=== PATIENT | male | born 1975 | race Caucasian/White ===

== ENCOUNTER 2017-06-07 18:05 | Emergency (ER) | payer OTHER ==
[2017-06-07 18:21] VITALS: RESP 18
--- NOTE | 2017-06-07 19:10 | ED ---
General Adult HPI - General Chief complaint: Recheck/Abnormal Lab/Rx Stated complaint: Cough Time Seen by Provider: 06/07/17 18:33 Source: patient Mode of arrival: ambulatory Limitations: no limitations - History of Present Illness Initial comments: 42-year-old male patient presents to emergency department today for evaluation after being sent in by [facility]. Patient has a past medical history significant for chronic alcohol abuse, liver failure , and cirrhosis of the liver. Patient states that he is treated for his liver condition by his internal medicine doctor and specialists in [place]. States that today he was having some chest pain whenever he coughed or sneezed. States that the chest pain last around 5 seconds but resolved quickly. He denies any current chest pain. He states that otherwise he is feeling normal. He states that the physician at [facility] was concerned because he had some scleral icterus, jaundice, and ascites on physical exam. Patient states that these symptoms and findings are chronic for him. He states that he has had jaundice and scleral icterus since his diagnosis of liver failure in Jul 2016. He states that he has paracentesis for his ascites every three months, his last tap was one week ago, he states his abdomen is much smaller than usual. He states he is feeling well overall other than that small episodes of chest pain. He states that he needs medical clearance to return to [facility]. Patient denies any recent fever, chills, shortness breath, sputum production, abdominal pain, nausea, vomiting, diarrhea, constipation, back pain, numbness, tingling, dizziness, weakness, hematuria, dysuria, urinary urgency, urinary frequency, headache, visual changes, or any other complaints. - Related Data Home Medications Medication Instructions Recorded Confirmed Ciprofloxacin HCl [Cipro] 500 mg PO DAILY 06/07/17 06/07/17 Lactulose 20 gm PO BID 06/07/17 06/07/17 Multivitamins, Thera [Multivitamin 1 tab PO DAILY 06/07/17 06/07/17 (formulary)] Pantoprazole Sodium [Protonix] 40 mg PO DAILY 06/07/17 06/07/17 Pyridoxine HCl (Vitamin B6) 100 mg PO DAILY 06/07/17 06/07/17 [Vitamin B-6] Spironolactone 50 mg PO BID 09/21/17 09/21/17 Thiamine [Vitamin B-1] 200 mg PO TID 06/07/17 06/07/17 traZODone HCL [Desyrel] 50 - 150 mg PO HS 06/07/17 06/07/17 Previous Rx's Medication Instructions Recorded Lactulose [Cephulac] 20 gm PO TID #1350 ml 06/07/17 Allergies Allergy/AdvReac Type Severity Reaction Status Date / Time No Known Allergies Allergy Verified 06/07/17 18:48 Review of Systems ROS Statement: Those systems with pertinent positive or pertinent negative responses have been documented in the HPI. ROS Other: All systems not noted in ROS Statement are negative. Past Medical History Additional Past Medical History / Comment(s): Liver failure, GI bleed History of Any Multi-Drug Resistant Organisms: None Reported Additional Past Surgical History / Comment(s): colonoscopy Past Psychological History: Anxiety Smoking Status: Current every day smoker Past Alcohol Use History: Abuse Past Drug Use History: Marijuana General Exam Limitations: no limitations General appearance: alert, in no apparent distress, other (Well-developed, well- nourished male in no acute distress. Vital signs upon admission were temperature 97.0, pulse 95, respirations 18, blood pressure 103/55, pulse ox 100 % on room air.) Eye exam: Present: normal appearance, PERRL, EOMI, scleral icterus. Absent: conjunctival injection, nystagmus, periorbital swelling ENT exam: Present: normal exam, normal oropharynx, mucous membranes moist Respiratory exam: Present: normal lung sounds bilaterally, chest wall tenderness (For the central chest). Absent: respiratory distress, wheezes, rales, rhonchi, stridor Cardiovascular Exam: Present: regular rate, normal rhythm, normal heart sounds. Absent: systolic murmur, diastolic murmur, rubs, gallop, clicks GI/Abdominal exam: Present: distended, normal bowel sounds, hernia (Umbilical, soft, no surrounding erythema, nontender.). Absent: soft, tenderness, guarding , rebound, rigid Extremities exam: Present: normal inspection, full ROM, normal capillary refill. Absent: tenderness, pedal edema, joint swelling, calf tenderness Back exam: Present: normal inspection. Absent: tenderness Neurological exam: Present: alert, oriented X3, CN II-XII intact Psychiatric exam: Present: normal affect, normal mood Skin exam: Present: warm, dry, intact, normal color (Jaundice). Absent: rash Course Vital Signs 06/07/17 06/07/17 06/07/17 18:11 20:25 20:57 Temperature 97.0 F L 98.0 F Pulse Rate 95 90 Respiratory 18 18 Rate Blood Pressure 103/55 93/53 O2 Sat by Pulse 100 95 Oximetry EKG Findings - EKG Comments: EKG Findings:: EKG obtained at 1931 shows normal sinus rhythm with a ventricular rate of 85, KS interval 142, QRS duration 100, QT 386, QTc 459. No evidence of ST elevation or depression. Medical Decision Making - Medical Decision Making 42-year-old male patient presented from [facility] for evaluation of chest pain. Patient reported that this chest pain occurred for approximately 5 seconds after a cough or a sneeze. Patient states this is not new for him however when he reported to the nurses they made him see the physician at [facility]. He states that with minimal exam, no vital signs, and without listening to him the physician sent him here for evaluation. Chest x-ray and EKG were negative for any acute process. Physical exam did reveal some jaundice and scleral icterus which patient states is chronic for him since being diagnosed with liver failure and cirrhosis in July 2016. Patient did also have some abdominal ascites noted however he states that his abdomen is not as large as usual, he did have paracentesis one week ago, he states he gets this every 3 months. Patient reports that otherwise he is feeling normal. He states that he doesn't really want to be here however it was required for him to be able to return to [facility]. He states that they are not giving him his lactulose as he usually takes it. Patient will be given a prescription to take lactulose 20 g 3 times daily. He will be also placed on a low-sodium diet which he states he usually takes to control swelling in his legs. He is instructed to follow-up with his primary care physician for recheck in 2 days. He is instructed to return here immediately for any new, worsening, or concerning symptoms. Patient will be sent back to [facility]. - Radiology Data Radiology results: report reviewed, image reviewed Two-view x-ray of the chest shows heart and mediastinum are normal. Lungs are clear consolidation. There are no hilar masses. There are chest leads. Bony thorax is intact. Impression by Dr. Durán shows normal chest. Disposition Clinical Impression: Cough, Chest wall pain Disposition: HOME SELF-CARE Condition: Good Instructions: Chest Wall Pain (ED) Additional Instructions: Take lactulose as prescribed. Follow up with your primary care physician for recheck in 1-2 days. Return here immediately for any new, worsening, or concerning symptoms. Prescriptions: Lactulose [Cephulac] 20 gm PO TID #1350 ml Referrals: None,Stated [Primary Care Provider] - 1-2 days Time of Disposition: 20:53
--- NOTE | 2017-06-07 20:00 | XR ---
EXAMINATION TYPE: XR chest 2V DATE OF EXAM: 06/07/2017 COMPARISON: NONE HISTORY: Chest pain TECHNIQUE: Frontal and lateral views of the chest are obtained. FINDINGS: Heart and mediastinum are normal. Lungs are clear of consolidation. There are no hilar mas ses. There are chest leads. Bony thorax is intact. IMPRESSION: Normal chest
[2017-06-07 21:21] VITALS: BP 125/75; PULSE 84; TEMP 97.9
== END 2017-06-07 21:22 | disposition home or self-care (01) ==
LOC: EC 18:05
DX: R07.89 Other chest pain (principal); R05 Cough; K72.90 Hepatic failure, unspecified without coma; F41.9 Anxiety disorder, unspecified; F17.200 Nicotine dependence, unspecified, uncomplicated; Z79.899 Other long term (current) drug therapy
CPT/HCPCS: 71020; 93005; 99283